=== PATIENT | female | born 1990 | race Caucasian/White ===

== ENCOUNTER 2017-02-09 04:51 | Emergency (ER) | payer SELFPAY ==
[~2017-02-09] VITALS: Ht 154.9 cm; Wt 109.0 kg
[2017-02-09] MEDS ORDERED: CYCLOBENZAPRINE 10MG TABLET PO ONE (07:30)
[2017-02-09] MEDS ORDERED: KETOROLAC 60MG/2ML VIAL IM ONE (07:30)
[2017-02-09 08:32] VITALS: BP 119/60
== END 2017-02-09 08:39 | disposition home or self-care (01) ==
LOC: ER 04:51
DX: M54.5 Low back pain (principal); M54.2 Cervicalgia
CPT/HCPCS: 96372; 99283; J1885; Z7610

== ENCOUNTER 2017-03-28 12:35 | Emergency (ER) | payer SELFPAY ==
[~2017-03-28] VITALS: Ht 152.4 cm; Wt 104.0 kg
[2017-03-28] MEDS ORDERED: ACETAMINOPHEN 325MG TABLET PO PRN (16:45)
[2017-03-28 17:12] LABS: BASOPHILS % 0.7 % (0.0-2.0); EOSINOPHILS % 0.7 % (0.0-5.0); HEMATOCRIT. 31.4 % (36.0-48.0); HEMOGLOBIN. 10.4 g/dL (12.0-16.0); LYMPHOCYTES % 19.3 % (20.0-50.0); MEAN CORPUSCULAR HEMOGLOBIN 25.5 pg (28.0-32.0); MEAN CORPUSCULAR VOLUME 76.7 fL (81.0-99.0); MEAN PLATELET VOLUME 7.1 fl (7.4-10.4); MONOCYTES % 6.5 % (2.0-8.0); NEUTROPHILS % 72.8 % (40.0-76.0); PLATELET 408 x1000/uL (130-400)
[2017-03-28 17:21] LABS: CHLORIDE 105 mEq/L (98-107)
[2017-03-28 17:31] LABS: CARBON DIOXIDE 27 mEq/L (21-32)
[2017-03-28 17:43] LABS: B-HCG QUANTITATIVE 13781 mIU/mL (<3)
[2017-03-28 19:52] LABS: CLARITY URINE CLEAR (CLEAR); COLOR URINE YELLOW (YELLOW); KETONES URINE NEGATIVE (NEGATIVE); LEUKOCYTE ESTERASE URINE TRACE (NEGATIVE); NITRITE URINE NEGATIVE (NEGATIVE); OCCULT BLOOD URINE NEGATIVE (NEGATIVE); PROTEIN URINE NEGATIVE (NEGATIVE); SPECIFIC GRAVITY URINE 1.015 (1.005-1.030); UROBILINOGEN URINE 0.2 E.U./dL (0.2-1.0)
[2017-03-28 20:35] VITALS: BP 110/55
== END 2017-03-28 20:35 | disposition home or self-care (01) ==
LOC: ER 13:00
DX: O26.892 Other specified pregnancy related conditions, second trimester (principal); O99.012 Anemia complicating pregnancy, second trimester; D64.9 Anemia, unspecified; Z3A.19 19 weeks gestation of pregnancy
CPT/HCPCS: 36415; 76805; 80053; 81001; 81025; 84702; 85025; 86850; 86900; 99285

== ENCOUNTER 2018-02-20 06:47 | Emergency (ER) | payer MEDICARE ==
[~2018-02-20] VITALS: Ht 152.4 cm; Wt 100.0 kg
[2018-02-20] MEDS ORDERED: KETOROLAC 30MG/ML VIAL IV STA (07:37)
[2018-02-20 11:34] VITALS: BP 138/72
== END 2018-02-20 11:35 | disposition home or self-care (01) ==
LOC: ER 06:47
DX: R51 Headache (principal); H53.149 Visual discomfort, unspecified; F17.200 Nicotine dependence, unspecified, uncomplicated; Z91.018 Allergy to other foods; Z90.89 Acquired absence of other organs
CPT/HCPCS: 96374; 99283; J1885

== ENCOUNTER 2018-04-11 12:15 | Emergency (ER) | payer MEDICARE ==
[~2018-04-11] VITALS: Ht 152.4 cm; Wt 104.0 kg
[2018-04-11] MEDS ORDERED: ACETAMINOPHEN 500MG TABLET PO ONE (16:45)
[2018-04-11] MEDS ORDERED: IBUPROFEN 600MG TABLET PO ONE (17:45)
[2018-04-11 17:47] VITALS: BP 135/57
== END 2018-04-11 18:34 | disposition home or self-care (01) ==
LOC: ER 13:06
DX: S16.1XXA Strain of muscle, fascia and tendon at neck level, initial encounter (principal); R51 Headache; V44.6XXA Car passenger injured in collision with heavy transport vehicle or bus in traffic accident, initial encounter; Y93.89 Activity, other specified; Y92.410 Unspecified street and highway as the place of occurrence of the external cause; R22.0 Localized swelling, mass and lump, head
CPT/HCPCS: 81025; 99284

== ENCOUNTER 2021-08-28 03:48 | Emergency (ER) | payer MEDICARE ==
[~2021-08-28] VITALS: Ht 162.6 cm; Wt 113.4 kg
[2021-08-28 04:38] VITALS: BP 116/63
[2021-08-28] MEDS ORDERED: IBUPROFEN 600MG TABLET PO STA (04:38)
[2021-08-28] MEDS ORDERED: NAPR-681 PO (04:56)
[2021-08-28] MEDS ORDERED: CYCL5TAB PO (04:56)
== END 2021-08-28 05:30 | disposition home or self-care (01) ==
LOC: ER 04:26
DX: S16.1XXA Strain of muscle, fascia and tendon at neck level, initial encounter (principal); M54.9 Dorsalgia, unspecified; M25.512 Pain in left shoulder; V49.49XA Driver injured in collision with other motor vehicles in traffic accident, initial encounter; Y93.89 Activity, other specified; Y92.414 Local residential or business street as the place of occurrence of the external cause
CPT/HCPCS: 99282; 99283